=== PATIENT | male | born 1970 | race Caucasian/White ===

== ENCOUNTER → 2017-11-16 | Day surgery (SDC) | payer OTHER ==
[~2017-11-16] VITALS: Ht 167.6 cm; Wt 97.1 kg
--- NOTE | 2017-11-16 08:50 | Operative Report ---
Operative/Inv Procedure Report Surgery Date: 11/16/17 Name of Procedure: Right carpal tunnel release right carpal tunnel release Pre-Operative Diagnosis: Right carpal tunnel syndrome Post-Operative Diagnosis: Same Estimated Blood Loss: scant Surgeon/Javascript Developer: Harvey Daley MD Anesthesia: moderate sedation, block IV Fluids: See anesthesia record Implants: None Drains: None Specimens: None Tourniquet: 15 minutes Complications: None Condition: Stable Operative Indication: Patient's a 47-year-old female with documented carpal tunnel syndrome on the right upper extremity. He failed conservative treatment including night splints and injections and was indicated for surgical decompression median nerve at the wrist. The risks and benefits of procedure discussed the patient detail and he wished to proceed. Operative/Procedure Note Note: Once informed consent was obtained and the correct limb was identified patient brought to operative room placed on table supine position. After administration of sedation local anesthesia was infiltrated around the right hand around the planned incision site. The right upper chamois was prepped and draped usual sterile fashion. The tourniquet was inflated to 250 mmHg. An incision was made in line with the radial border of the fourth ray in the palm. Sharp dissection was carried down to skin and subcutaneous tissue and palmar fascia. A 58 Counselor elevator was then placed deep to the transverse carpal ligament and the transverse carpal ligament was transected with a #10 blade. Care was taken avoid neurovascular and tendinous structures. Complete decompression was performed distally and proximally. The wound was then irrigated with sterile saline solution. The skin incision was then closed with 3-0 nylon interrupted sutures and a sterile dressing as well as applied and the patient was awakened taken recovery in stable condition.
== END ==
LOC: STS 02:42
DX: G56.01 Carpal tunnel syndrome, right upper limb (principal); Z87.09 Personal history of other diseases of the respiratory system
CPT/HCPCS: J0690; J2001; J2250; J3490